=== PATIENT | male | born 1970 | race Caucasian/White ===

== ENCOUNTER → 2018-06-29 | Outpatient (CLI) | payer OTHER ==
--- NOTE | 2018-06-29 12:49 | CONS ---
CONSULTATION DATE OF SERVICE: 06/29/2018 A 47-year-old gentleman who has been evaluated in the [facility] for his sleep problems. Patient has difficulties to initiate sleep. Also wakes up from sleep. Feel tiredness and sleepiness during the day. HISTORY OF PRESENT ILLNESS/SLEEP-WAKE EVALUATION: Patient usually fell asleep late around 3 am. Sometimes this is the time when goes to bed, but sometimes he goes to bed early and cannot fall asleep until that time. Also, he may go to bed at 3 am and fall asleep around 5 am. Usually he sleeps from around 3 am until 9 a.m. and then he is staying in bed until 10 am and then he gets up. He does have TV set in bedroom, usually sleeps on the back position. According to his , he snores and sometimes has episodes of very quite sleep, possibly changes of the breathing during the sleep. In the morning, patient wakes up tired, has difficulties to pay attention, has problems with memory, concentration, irritability and anxiety. [place] Sleepiness Scale is 5. Patient usually does not take any naps. He drinks a lot of caffeinated beverages during the day. No history of hypnagogic hallucinations or sleep paralysis. When he sleeps, he wakes up unable to move. PAST MEDICAL HISTORY: 1. Positive for coronary artery disease with status post 2 heart attacks in 2006 and 2011, hypertension, hyperlipidemia. Recently patient started to have episodes of losing consciousness with a fall, under evaluation for possible cardiac arrhythmia. EEG evaluation for surgeries was negative. 2. History of anxiety. PAST SURGICAL HISTORY: Status post stent insertion to coronary artery in 2006, neck fusion in 2007, with blood clot. SOCIAL HISTORY: Positive for smoking for about 30 years for about 4 years, one pack a day, now occasionally. Alcohol consumption occasional. FAMILY HISTORY: Hypertension, heart problems, hyperlipidemia, arthritis, asthma, snoring, cancer, insomnia, restless legs. REVIEW OF SYSTEMS: Difficulties to initiate sleep, awakenings from sleep, tiredness and sleepiness during the day, episodes of passing out. PHYSICAL EXAM: gentleman without distress, BP 128/79, HR 84, RR 16, height 5 foot 8 inches, weight 162, body mass index 24.6, temperature 97.8, oxygen saturation at room air 98%. OROPHARYNX: Moderately low position of soft palate, big uvula, but deep throat, neck 14-1/2 inches in circumference, restriction of nasal breathing, 3 mm. Neck Supple, no JVD. Thyroid is not palpable. LUNGS Clear to percussion and to auscultation. Good air exchange. No wheezing or rhonchi. HEART S1, S2 regular. No murmurs, gallops, or rubs. ABDOMEN Soft and nontender. Bowel sounds are present. No organomegaly appreciated. EXTREMITIES No clubbing or cyanosis. 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 Cranial nerves 2 to 7 intact. There is no fasciculation or atrophy. noted. No focal deficits observed. IMPRESSION: 1. Snoring episodes of very quiet sleep during the night, possibly changes of breathing, moderately low position of soft palate. Restriction of nasal breathing, [QAMARKER], possible obstructive sleep apnea-hypopnea syndrome. 2. Insomnia, possibly related to anxiety. 3. Sleep delay syndrome. 4. History of coronary artery disease, status post two heart attacks, status post stent insertion. 5. Hypertension. 6. Episodes of passing out. Evaluation for surgeries by according to patient was negative under evaluation for cardiac arrhythmia. 7. History of asthma. 8. History of anxiety. 9. Hyperlipidemia. 10.Status post neck fusion in 2007. 11.History of smoking for 30 years, presently 7 cigarettes a day. PLAN: 1. Polysomnography for evaluation of patient's breathing during sleep. 2. CPAP/BiPAP titration if sleep study confirms obstructive sleep apnea-hypopnea syndrome. 3. Preferable position during sleep on the side. No driving if patient feels any sleepiness. 4. I will see patient for follow up visit to explain results of testing and following plan. 5. I discussed with the patient cognitive therapy for insomnia including stimulus control, paradoxical intention, no watching clock, worry time. 6. As much as possible bright light exposure in the morning. We discussed possibility to use light machine in the morning to help patient to move his sleep cycle earlier. Thank you very much for referring this patient for consultation. Sincerely, Chaz Guy MD, PhD, FAASM Diplomat of [employer] [employer] Correctional Treatment Specialist of [facility] [place] MMODL / IJN: [id number] /
== END | disposition home or self-care (01) ==
LOC: SLEEP 10:38
PROVIDERS: ATTEND Internal Medicine
DX: G47.00 Insomnia, unspecified (principal); G47.21 Circadian rhythm sleep disorder, delayed sleep phase type; I10 Essential (primary) hypertension; J45.909 Unspecified asthma, uncomplicated; F41.9 Anxiety disorder, unspecified; E78.5 Hyperlipidemia, unspecified; I25.2 Old myocardial infarction; F17.210 Nicotine dependence, cigarettes, uncomplicated; Z86.79 Personal history of other diseases of the circulatory system; Z98.1 Arthrodesis status; Z95.5 Presence of coronary angioplasty implant and graft
CPT/HCPCS: 99211

== ENCOUNTER → 2018-11-23 | Outpatient (CLI) | payer OTHER ==
--- NOTE | 2018-11-23 17:04 | PN ---
PROGRESS NOTE DATE OF SERVICE: 11/23/2018 This patient is a 48-year-old gentleman who has been followed in the sleep center for treatment of obstructive sleep apnea-hypopnea syndrome. Patient continues to have sleep problems related to possible obstructive sleep apnea. He snores and has witnessed episodes of possible stopped breathing during sleep. He wakes up from sleep. [place] Sleepiness Scale is significantly increased at 17 today. MEDICATIONS: 1. Lipitor. 2. Aspirin. 3. Toprol. 4. Plavix. 5. Cymbalta. 6. Xanax. 7. Vitamin D. 8. Albuterol inhaler. PHYSICAL EXAMINATION: GENERAL: A pleasant gentleman in no distress. VITAL SIGNS: BP 131/71, HR 87, RR 14, height 5 feet 8 inches, weight 165.4 pounds, temperature 97.7. HEENT: PERRLA, EOMI. Evaluation of oropharynx showed tongue protrudes midline. Low position of soft palate. NECK: Supple. No JVD. Thyroid is not palpable. Neck measures 15 inches in circumference. LUNGS: Clear to percussion and to auscultation. Good air exchange. No wheezing or rhonchi. HEART: S1, S2 regular. No murmurs, gallops or rubs. ABDOMEN: Soft and nontender. Bowel sounds are present. No organomegaly. EXTREMITIES: No clubbing or cyanosis. 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 Cranial nerves 2 to 7 intact. There is no fasciculation or atrophy. noted. No focal deficits observed. IMPRESSION: 1. Snoring, changes of breathing during sleep, low position of soft palate, significant excessive daytime sleepiness; obstructive sleep apnea-hypopnea syndrome. 2. History of sleep delay syndrome. 3. History of coronary artery disease, status post 2 heart attacks, status post stent insertion. 4. Hypertension. 5. History of episodes of passing out; 2 episodes since the patient was last seen in the sleep center. 6. History of asthma. 7. History of anxiety. 8. Hyperlipidemia. 9. Status post neck fusion in 2007. 10.History of smoking for about 30 years, at present about one third of a pack a day. PLAN: 1. Polysomnography for evaluation of patient's breathing during sleep. 2. CPAP titration if sleep study is positive for obstructive sleep apnea-hypopnea syndrome. 3. Sleep hygiene with regular time in bed for at least 7-1/2 hours. 4. No driving if feeling any sleepiness. Thank you very much for allowing me to participate in the management of your patient. Sincerely, Chaz Guy MD, PhD, FAASM Diplomat of [employer] Nutrition Aides Teacher of [facility] [place] MMLINDA / GIOVANNA: [id number] /
== END | disposition home or self-care (01) ==
LOC: SLEEP 15:33
PROVIDERS: ATTEND Internal Medicine
DX: G47.33 Obstructive sleep apnea (adult) (pediatric) (principal); I10 Essential (primary) hypertension; E78.5 Hyperlipidemia, unspecified; I25.2 Old myocardial infarction; F17.210 Nicotine dependence, cigarettes, uncomplicated; Z86.79 Personal history of other diseases of the circulatory system; Z87.09 Personal history of other diseases of the respiratory system; Z86.59 Personal history of other mental and behavioral disorders; Z95.5 Presence of coronary angioplasty implant and graft; Z98.1 Arthrodesis status; Z79.82 Long term (current) use of aspirin; Z79.02 Long term (current) use of antithrombotics/antiplatelets; Z79.899 Other long term (current) drug therapy

== ENCOUNTER 2020-06-04 11:42 | Observation (INO) | payer OTHER ==
[2020-06-04] MEDS ORDERED: ASPIRIN 81 MG PO STA (11:56)
[2020-06-04 12:04] LABS: Basophils # (A) 0.1 k/uL (0-0.2); Basophils % (A) 1 %; Eosinophils # (A) 0.5 k/uL (0-0.7); Eosinophils % (A) 4 %; HCT 44.8 % (39.0-53.0); HGB 14.9 gm/dL (13.0-17.5); Lymphocytes # (A) 1.7 k/uL (1.0-4.8); Lymphocytes % (A) 15 %; MCH 31.7 pg (25.0-35.0); MCHC 33.3 g/dL (31.0-37.0); MCV 95.1 fL (80.0-100.0); Mean Platelet Volume 7.8; Monocytes # (A) 0.6 k/uL (0-1.0); Monocytes % (A) 6 %; Neutrophils # (A) 8.2 k/uL (1.3-7.7); Neutrophils % (A) 74 %; Platelet Count 246 k/uL (150-450); RBC 4.71 m/uL (4.30-5.90); RDW 13.7 % (11.5-15.5); WBC 11.1 k/uL (3.8-10.6)
[2020-06-04 12:13] LABS: ALT 52 U/L (4-49); AST 47 U/L (17-59); African American GFR (CKD) >90 (>60 ml/min/1.73 sqM); Albumin 4.6 g/dL (3.5-5.0); Alkaline Phosphatase 136 U/L (38-126); Anion Gap 9 mmol/L; Blood Urea Nitrogen 10 mg/dL (9-20); Calcium 9.5 mg/dL (8.4-10.2); Carbon Dioxide 25 mmol/L (22-30); Chloride 105 mmol/L (98-107); Glucose 111 mg/dL (74-99); Lipase 109 U/L (23-300); Non-African American GFR(CKD) >90 (>60 ml/min/1.73 sqM); Potassium 4.7 mmol/L (3.5-5.1); Sodium 139 mmol/L (137-145); Total Bilirubin 0.4 mg/dL (0.2-1.3); Total Protein 7.5 g/dL (6.3-8.2)
[2020-06-04 12:19] LABS: INR 0.9 (<1.2); Prothrombin Time 9.6 sec (9.0-12.0)
--- NOTE | 2020-06-04 12:26 | XR ---
EXAMINATION TYPE: XR chest 2V DATE OF EXAM: 06/04/2020 COMPARISON: 07/29/2012 HISTORY: 49-year-old male with chest pain TECHNIQUE: PA and lateral views FINDINGS: The cardiomediastinal silhouette, aorta, and pulmonary vasculature are within normal limits. Loop rec order device is visualized. Mild interstitial prominence. No consolidation or pleural effusion. ACDF hardware. IMPRESSION: Interstitial prominence could represent bronchitis or asthma. Follow-up if concern for early atypical pneumonia. No focal infiltrate seen.
[2020-06-04 12:34] LABS: D-Dimer <0.17 mg/L FEU (<0.60)
[2020-06-04] MEDS ORDERED: NITROGLYCERIN SL TABS 0.4 MG TAB SUBLINGUAL PRN (12:48)
[2020-06-04] MEDS ORDERED: HEPARIN SODIUM,PORCINE 5,000 UNIT/ML 1 ML VIAL IV PRN (12:48)
[2020-06-04] MEDS ORDERED: HEPARIN SODIUM,PORCINE 5,000 UNIT/ML 1 ML VIAL IV ONE (12:48)
--- NOTE | 2020-06-04 12:48 | ED ---
Chest Pain HPI - General Chief Complaint: Chest Pain Stated Complaint: chest pain Time Seen by Provider: 06/04/20 11:48 Source: patient, RN notes reviewed Mode of arrival: wheelchair Limitations: no limitations - History of Present Illness Initial Comments: 49-year-old male presents emergency Department chief complaint of chest pain. Patient states symptoms started a couple days ago patient states symptoms are worsen. He's had no relief with nitro at home. Patient does not take any aspirin today. Patient had [place] in 2006 and was stented at that time by Dr. Lyn Patient denies any current shortness of breath. No leg pain. He has intermittent swelling. Patient takes multiple medications for cardiac disease - Related Data Allergies Allergy/AdvReac Type Severity Reaction Status Date / Time simvastatin [From Zocor] Allergy Unknown Verified 06/04/20 11:52 Review of Systems ROS Statement: Those systems with pertinent positive or pertinent negative responses have been documented in the HPI. ROS Other: All systems not noted in ROS Statement are negative. Past Medical History Past Medical History: Coronary Artery Disease (CAD), Deep Vein Thrombosis (DVT), Hyperlipidemia, Hypertension, Myocardial Infarction ([place]) Past Surgical History: Heart Catheterization With Stent Additional Past Surgical History / Comment(s): cervical fusion, loop recorder Past Psychological History: No Psychological Hx Reported Smoking Status: Former smoker Past Alcohol Use History: Occasional Past Drug Use History: None Reported General Exam Limitations: no limitations General appearance: alert, in no apparent distress Head exam: Present: atraumatic, normocephalic, normal inspection Eye exam: Present: normal appearance, PERRL, EOMI. Absent: scleral icterus, conjunctival injection, periorbital swelling ENT exam: Present: normal exam, normal oropharynx, mucous membranes moist Neck exam: Present: normal inspection. Absent: tenderness, meningismus, lymphadenopathy Respiratory exam: Present: normal lung sounds bilaterally. Absent: respiratory distress, wheezes, rales, rhonchi, stridor Cardiovascular Exam: Present: regular rate, normal rhythm, normal heart sounds. Absent: systolic murmur, diastolic murmur, rubs, gallop, clicks GI/Abdominal exam: Present: soft, normal bowel sounds. Absent: distended, tenderness, guarding, rebound, rigid Extremities exam: Present: normal capillary refill. Absent: pedal edema, calf tenderness Course Vital Signs 06/04/20 11:46 Temperature 98.2 F Pulse Rate 98 Respiratory 18 Rate Blood Pressure 157/91 O2 Sat by Pulse 99 Oximetry Chest Pain MDM - MDM Patient was reviewed with no significant abnormalities. Patient does have known cardiac disease with prior stents. Patient will be admitted for cardiac rule out and cardiology evaluation Disposition Clinical Impression: Chest pain Disposition: ADMITTED IP TO THIS HOSP Condition: Fair Referrals: Donell Gunter MD [Primary Care Provider] - 1-2 days
[2020-06-04] MEDS ORDERED: HEPARIN SOD,PORK IN 0.45% NACL 25,000 UNIT in 0.45% NACL 1 250ML.BAG IV SCH (13:00)
--- NOTE | 2020-06-04 14:59 | P.CRDCN ---
History of Present Illness Consult date: 06/04/20 History of present illness: CHIEF COMPLAINT: Chest pain HISTORY OF PRESENT ILLNESS: This is a 49-year-old male with a past medical history significant for coronary artery disease with previous PCI in 2007, syncope with loop recorder insertion in 2018, hypertension, hyperlipidemia, COPD, DVT, and former nicotine dependence. Patient used to follow with Dr. Meek. We have been asked to see the patient in consultation for chest pain. Patient examined this afternoon at the bedside. Patient states he began having chest pain last . He describes it as a nagging ache in the left upper part of his chest. He states the pain has continued since that time but has lessened in severity. He reports being short of breath and diaphoretic. He denies any cough or fever. Patient states the pain is not worse with movement or deep inspiration. Chest wall is nontender with palpation. Patient believes he has had a stress test or a cardiac catheterization within the last couple years with Dr. Meek. Patient also reports his blood pressure has been running high at home with a systolic in the 150s which is unusual for him. DIAGNOSTICS: EKG reveals sinus mechanism. Heart rate 96. No evidence of acute ischemia Chest xray interstitial prominence could represent bronchitis or asthma. Foll ow-up if concern for early atypical pneumonia. No focal infiltrate seen. Laboratory data: WBC 11.1. Hemoglobin 14.9. Platelet count 246. D-dimer 0.17. Sodium 139. Potassium 4.7. BUN 10. Creatinine 0.86. Magnesium 2.0. Troponin negative 1. BNP 44. Current home cardiac medications include measuring 10 mg 3 times a day, metoprolol 25 mg twice a day, lisinopril 2.5 mg daily, Imdur 30 mg daily, Plavix 75 mg daily, Lipitor 40 mg daily REVIEW OF SYSTEMS: At the time of my exam: CONSTITUTIONAL: Denies fever or chills. HEENT: Denies blurred vision, vision changes, or eye pain. Denies hemoptysis CARDIOVASCULAR: Denies chest pain, orthopnea, PND or palpitations RESPIRATORY: No shortness of breath. GASTROINTESTINAL: Denies abdominal pain. Denies nausea or vomiting. HEMATOLOGIC: Denies bleeding disorders. GENITOURINARY: Denies any blood in urine. SKIN: Denies pruitis. Denies rash. PHYSICAL EXAM: VITAL SIGNS: Reviewed. GENERAL: Well-developed in no acute distress. HEENT: Head is normocephalic. Pupils are equal, round. Sclerae anicteric. Mucous membranes of the mouth are moist. Neck supple. No JVD or thyromegaly LUNGS: Respirations even and unlabored. Lungs essentially clear to auscultation bilaterally. HEART: Regular rate and rhythm. S1 and S2 heard. ABDOMEN: Soft. Nondistended. Nontender. EXTREMITIES: Normal range of motion. No clubbing or cyanosis. Peripheral pulses intact. No lower extremity edema NEUROLOGIC: Awake and alert. Oriented x 3. ASSESSMENT: Chest pain Leukocytosis Coronary artery disease with previous PCI in 2006 History of syncope, status post loop recorder insertion Hypertension Hyperlipidemia COPD History of DVT Former nicotine dependence PLAN: Continue IV heparin Decrease aspirin to 81mg Trend troponin levels Resume home cardiac medications Increase lisinopril to 10 mg daily Obtain 2-D echo to assess cardiac structure and function Obtain records from Dr. Santana office Nothing by mouth after midnight Possible stress test tomorrow Nurse practitioner note has been reviewed by physician. Signing provider agrees with the documented findings, assessment, and plan of care. Past Medical History Past Medical History: Asthma, Coronary Artery Disease (CAD), Chest Pain / Angina, COPD, Deep Vein Thrombosis (DVT), Hyperlipidemia, Hypertension, Myocardial Infarction ([place]), Sleep Apnea/CPAP/BIPAP, Syncope, Vascular Disorder Additional Past Medical History / Comment(s): 2006 [place], 2012 [place], intermittent lower leg edema, DVT R leg, MARY KATE without device, insomia. Last Myocardial Infarction Date:: 2012 History of Any Multi-Drug Resistant Organisms: None Reported Past Surgical History: Heart Catheterization With Stent Additional Past Surgical History / Comment(s): PCI with stents, loop recorder (d/t syncope), R common femoral endartectomy/angioplasty, cervical fusion with plate, Past Anesthesia/Blood Transfusion Reactions: No Reported Reaction Date of Last Stent Placement:: 2012 Type of Cardiac Device: Loop Device Placement Date:: unknown Past Psychological History: Anxiety, Depression Additional Psychological History / Comment(s): Pt resides with his spouse. He does not drive. Spouse drives. Smoking Status: Former smoker Past Alcohol Use History: Occasional Additional Past Alcohol Use History / Comment(s): Pt started smoking as a teen and quit in 2019. Past Drug Use History: None Reported - Past Family History Father Family Medical History: Coronary Artery Disease (CAD), Myocardial Infarction ([place]) Additional Family Medical History / Comment(s): Father while on heart transplant list. He had several MIs with first one at age 41 yrs. He had CABGs Mother Family Medical History: Cancer Additional Family Medical History / Comment(s): Mother of lung cancer. She was a smoker. Medications and Allergies Home Medications Medication Instructions Recorded Confirmed Type ALPRAZolam [Xanax] 0.5 mg PO BID PRN 06/04/20 06/04/20 History Albuterol Sulfate [Proair Hfa] 2 puff INHALATION RT-Q6H PRN 06/04/20 06/04/20 History Atorvastatin Calcium [Lipitor] 40 mg HS 06/04/20 06/04/20 History Cetirizine HCl 10 mg PO HS 06/04/20 06/04/20 History Clopidogrel [Plavix] 75 mg PO HS 06/04/20 06/04/20 History Cyclobenzaprine HCl 10 mg PO TID PRN 06/04/20 06/04/20 History DULoxetine HCL [Cymbalta] 30 mg PO HS 06/04/20 06/04/20 History Ergocalciferol [Vitamin D2 (1250 1,250 mcg PO FR 06/04/20 06/04/20 History Mcg = [id number] Iu)] Ezetimibe [Zetia] 10 mg PO HS 06/04/20 06/04/20 History Glycopyrrolate/Formoterol Fum 2 puff INHALATION RT-BID 06/04/20 06/04/20 History [Bevespi Aerosphere Inhaler] Isosorbide Mononitrate ER [Imdur] 30 mg PO HS 06/04/20 06/04/20 History Metoprolol Succinate [Toprol XL] 25 mg PO BID 06/04/20 06/04/20 History Midodrine HCl [ProAmatine] 10 mg PO TID 06/04/20 06/04/20 History Omeprazole Magnesium 20 mg PO HS 06/04/20 06/04/20 History Zolpidem [Ambien] 5 mg PO HS PRN 06/04/20 06/04/20 History lisinopriL [Zestril] 2.5 mg PO DAILY 06/04/20 06/04/20 History Allergies Allergy/AdvReac Type Severity Reaction Status Date / Time simvastatin [From Zocor] Allergy Unknown Verified 06/04/20 13:06 Physical Exam Vitals: Vital Signs Temp Pulse Resp BP Pulse Ox 06/04/20 14:00 98.0 F 88 18 140/86 99 06/04/20 11:46 98.2 F 98 18 157/91 99 Intake and Output 06/03/20 06/04/20 06/04/20 22:59 06:59 14:59 Other: Weight 83.461 kg Results 06/04/20 11:58 06/04/20 11:58 Cardiac Enzymes 06/04/20 06/04/20 Range/Units 11:58 11:58 AST 47 (17-59) U/L Troponin I <0.012 (0.000-0.034) ng/mL Coagulation 06/04/20 Range/Units 11:58 PT 9.6 (9.0-12.0) sec APTT 24.0 (22.0-30.0) sec CBC 06/04/20 Range/Units 11:58 WBC 11.1 H (3.8-10.6) k/uL RBC 4.71 (4.30-5.90) m/uL Hgb 14.9 (13.0-17.5) gm/dL Hct 44.8 (39.0-53.0) % Plt Count 246 (150-450) k/uL Comprehensive Metabolic Panel 06/04/20 Range/Units 11:58 Sodium 139 (137-145) mmol/L Potassium 4.7 (3.5-5.1) mmol/L Chloride 105 (98-107) mmol/L Carbon Dioxide 25 (22-30) mmol/L BUN 10 (9-20) mg/dL Creatinine 0.86 (0.66-1.25) mg/dL Glucose 111 H (74-99) mg/dL Calcium 9.5 (8.4-10.2) mg/dL AST 47 (17-59) U/L ALT 52 H (4-49) U/L Alkaline Phosphatase 136 H (38-126) U/L Total Protein 7.5 (6.3-8.2) g/dL Albumin 4.6 (3.5-5.0) g/dL Current Medications Generic Name Dose Route Start Last Admin Trade Name Freq PRN Reason Stop Dose Admin Aspirin 325 mg 06/05/20 09:00 Aspirin 325 Mg Tab PO DAILY [facility] Heparin Sodium (Porcine) 0 unit 06/04/20 12:48 Heparin Sodium,Porcine 5,000 Unit/Ml 1 Ml Vial IV Q6HR PRN Low PTT Protocol Heparin Sodium/Sodium Chloride 250 mls @ 10.015 mls/hr 06/04/20 13:00 06/04/20 13:26 25,000 unit/ Sodium Chloride IV 12 units/kg/hr .Q24H TRELL 10.015 mls/hr Administration Protocol 12 UNITS/KG/HR Nitroglycerin 0.4 mg 06/04/20 12:48 Nitroglycerin Sl Tabs 0.4 Mg Tab SUBLINGUAL Q5M PRN Chest Pain Intake and Output 06/03/20 06/04/20 06/04/20 22:59 06:59 14:59 Other: Weight 83.461 kg Patient Weight 06/05/20 06:59 Weight 83.461 kg 06/04/20 11:58 06/04/20 11:58
[2020-06-04] MEDS ORDERED: ZOLPIDEM 5 MG TAB PO PRN (17:57)
[2020-06-04] MEDS ORDERED: ALPRAZolam 0.5 MG TAB PO PRN (17:57)
[2020-06-04] MEDS ORDERED: ALBUTEROL NEBULIZED 2.5 MG/3 ML INHALATION PRN (17:57)
[2020-06-04] MEDS ORDERED: CYCLOBENZAPRINE 10 MG TAB PO PRN (17:57)
[2020-06-04] MEDS ORDERED: MIDODRINE 5 MG TAB PO SCH (18:00)
[2020-06-04] MEDS: IPRATROPIUM 0.5 MG/2.5 ML NEBU INHALATION SCH (19:49)
[2020-06-04] MEDS: FORMOTEROL FUMARATE 20 MCG/2 ML NEBU INHALATION SCH (19:49)
--- NOTE | 2020-06-04 19:56 | P.HPIM ---
History of Present Illness H&P Date: 06/04/20 Chief Complaint: Not feeling well History of presenting complaint: This is a pleasant 49-year-old patient who follows with Dr. Gunter. Chronic stable medical conditions include COPD, DVT, hypertension, hyperlipidemia, obstructive sleep apnea, DVT of the right leg, does not use a CPAP machine, insomnia,. Patient's last stent was about 2006. Has not really followed up since then. Last weekend has been feeling just unwell. That is about 3 days ago. Just inferior right. Blood pressure is running high. Motor to be a slightly short of breath dizzy. [place] constant aching in the chest. Also tight the back. Can do for pain also. No wheezing. No fever no chills. No edema. Admitted with a diagnosis of unstable angina. Review of systems: GEN.: Tired EYES: None HEENT: None NECK: None RESPIRATORY: As above CARDIOVASCULAR: As above GASTROINTESTINAL: None GENITOURINARY: None MUSCULOSKELETAL: None LYMPHATICS: None HEMATOLOGICAL: None PSYCHIATRY: None NEUROLOGICAL: None Past medical history to include: Coronary artery with stent, COPD, DVT, hypertension, hyperlipidemia, obstructive sleep apnea does not use a device, insomnia. According, peripheral arterial disease with peripheral intervention anxiety depression Social history: Consult: Occasionally. Smoked a pack and a half a day for close to 30 years. Stopped last year. 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 Physical examination: VITAL SIGNS: 98.2, 98, 18, 157.91, 99% room air GENERAL: 28.0, sitting up in bed, not in distress. EYES: Pupils equal. Conjunctiva normal. HEENT: External appearance of nose and ears normal, oral cavity grossly normal. NECK: JVD not raised; masses not palpable. HEART: First and second heart sounds are normal; no edema. LUNGS: Respiratory rate normal; slightly decreased breath sounds. ABDOMEN: Soft, nontender, liver spleen not palpable, no masses palpable. PSYCH: Alert and oriented x3; mood and affect normal. NEUROLOGICAL: Cranial nerves grossly intact; no facial asymmetry, power and sensation grossly intact. LYMPHATICS: No lymph nodes palpable in the axilla and neck INVESTIGATIONS, reviewed in the clinical context: White count 9.1 hemoglobin 14.9 platelets 246 potassium 4.7 creatinine 0.86 Troponin I 3 negative EKG tracing personally reviewed by me-normal sinus rhythm Q waves in inferior leads Chest x-ray film personally reviewed by me-shows some interstitial prominence. Assessment: -Possible unstable angina in a patient with known coronary artery disease with a stent about 13 years ago. Patient has smoked up to about a year ago. -Essential hypertension -Coronary artery disease with stent -COPD in a previous smoker -Hypertension -Hyperlipidemia -Obstructive sleep apnea does not use a device -Peripheral artery disease with previously right common femoral and a right colectomy with angioplasty -Chronic insomnia Plan: Patient started IV heparin. Home medications resumed. Aspirin. Patient will benefit at least from a nuclear stress test and if not a cardiac catheterization. Care was discussed with the patient questions answered. Cardiology consulted. Past Medical History Past Medical History: Asthma, Coronary Artery Disease (CAD), Chest Pain / Angina, COPD, Deep Vein Thrombosis (DVT), Hyperlipidemia, Hypertension, Myocardial Infarction ([place]), Sleep Apnea/CPAP/BIPAP, Syncope, Vascular Disorder Additional Past Medical History / Comment(s): 2006 [place], [place], intermittent lower leg edema, DVT R leg, MARY KATE without device, insomia. Last Myocardial Infarction Date:: 2012 History of Any Multi-Drug Resistant Organisms: None Reported Past Surgical History: Heart Catheterization With Stent Additional Past Surgical History / Comment(s): PCI with stents, loop recorder (d/t syncope), R common femoral endartectomy/angioplasty, cervical fusion with plate, Past Anesthesia/Blood Transfusion Reactions: No Reported Reaction Date of Last Stent Placement:: 2012 Type of Cardiac Device: Loop Device Placement Date:: unknown Past Psychological History: Anxiety, Depression Additional Psychological History / Comment(s): Pt resides with his spouse. He does not drive. Spouse drives. Smoking Status: Former smoker Past Alcohol Use History: Occasional Additional Past Alcohol Use History / Comment(s): Pt started smoking as a teen and quit in 2019. Past Drug Use History: None Reported - Past Family History Father Family Medical History: Coronary Artery Disease (CAD), Myocardial Infarction ([place]) Additional Family Medical History / Comment(s): Father while on heart transplant list. He had several MIs with first one at age 41 yrs. He had CABGs Mother Family Medical History: Cancer Additional Family Medical History / Comment(s): Mother of lung cancer. She was a smoker. Medications and Allergies Home Medications Medication Instructions Recorded Confirmed Type ALPRAZolam [Xanax] 0.5 mg PO BID PRN 06/04/20 06/04/20 History Albuterol Sulfate [Proair Hfa] 2 puff INHALATION RT-Q6H PRN 06/04/20 06/04/20 History Atorvastatin Calcium [Lipitor] 40 mg HS 06/04/20 06/04/20 History Cetirizine HCl 10 mg PO HS 06/04/20 06/04/20 History Clopidogrel [Plavix] 75 mg PO HS 06/04/20 06/04/20 History Cyclobenzaprine HCl 10 mg PO TID PRN 06/04/20 06/04/20 History DULoxetine HCL [Cymbalta] 30 mg PO HS 06/04/20 06/04/20 History Ergocalciferol [Vitamin D2 (1250 1,250 mcg PO FR 06/04/20 06/04/20 History Mcg = 57339 Iu)] Ezetimibe [Zetia] 10 mg PO HS 06/04/20 06/04/20 History Glycopyrrolate/Formoterol Fum 2 puff INHALATION RT-BID 06/04/20 06/04/20 History [Bevespi Aerosphere Inhaler] Isosorbide Mononitrate ER [Imdur] 30 mg PO HS 06/04/20 06/04/20 History Metoprolol Succinate [Toprol XL] 25 mg PO BID 06/04/20 06/04/20 History Omeprazole Magnesium 20 mg PO HS 06/04/20 06/04/20 History Zolpidem [Ambien] 5 mg PO HS PRN 06/04/20 06/04/20 History lisinopriL [Zestril] 2.5 mg PO DAILY 06/04/20 06/04/20 History Allergies Allergy/AdvReac Type Severity Reaction Status Date / Time simvastatin [From Zocor] Allergy Unknown Verified 06/04/20 13:06 Physical Exam Vitals: Vital Signs Temp Pulse Pulse Resp BP BP Pulse Ox 06/04/20 14:58 98.1 F 85 85 H 126/79 06/04/20 14:00 98.0 F 88 18 140/86 99 06/04/20 11:46 98.2 F 98 18 157/91 99 Intake and Output 06/04/20 06/04/20 06/04/20 06:59 14:59 22:59 Intake Total 520 Balance 520 Intake: Intake, IV Titration 40 Amount Heparin Sod,Pork in 0.45% 40 NaCl 25,000 unit In 0.45 % NaCl 1 250ml.bag @ 12 UNITS/KG/HR 10.015 mls/hr IV .Q24H TRELL Rx#: [id number] Oral 480 Other: # Voids 1 Weight 83.461 kg Results CBC & Chem 7: 06/04/20 11:58 06/04/20 11:58 Labs: Abnormal Lab Results - Last 24 Hours (Table) 06/04/20 06/04/20 06/04/20 Range/Units 11:58 11:58 18:15 WBC 11.1 H (3.8-10.6) k/uL Neutrophils # 8.2 H (1.3-7.7) k/uL APTT 31.5 H (22.0-30.0) sec Glucose 111 H (74-99) mg/dL ALT 52 H (4-49) U/L Alkaline Phosphatase 136 H (38-126) U/L Thrombosis Risk Factor Assmnt - Choose All That Apply Any of the Below Risk Factors Present?: Yes Each Factor Represents 1 point: Age 41-60 years, Obesity (BMI >25) Other Risk Factors: Yes Each Risk Factor Represents 3 Points: History of DVT/PE Thrombosis Risk Factor Assessment Total Risk Factor Score: 5 Thrombosis Risk Factor Assessment Level: High Risk
[2020-06-04] MEDS ORDERED: PANTOPRAZOLE 40 MG TABLET PO SCH (21:00)
[2020-06-04] MEDS ORDERED: EZETIMIBE 10 MG TAB PO SCH (21:00)
[2020-06-04] MEDS ORDERED: DULoxetine HCL 30 MG CAPSULE.DR PO SCH (21:00)
[2020-06-04] MEDS ORDERED: ATORVASTATIN 40 MG TAB PO SCH (21:00)
[2020-06-04] MEDS ORDERED: ISOSORBIDE MONONITRATE ER 30 MG TAB.ER.24H PO SCH (21:00)
[2020-06-04] MEDS ORDERED: CLOPIDOGREL 75 MG TAB PO SCH (21:00)
[2020-06-04] MEDS: METOPROLOL SUCCINATE (ER) 25 MG TAB.ER.24H PO SCH (22:49)
[2020-06-05 02:20] LABS: Mean Platelet Volume 7.9; Platelet Count 237 k/uL (150-450)
[2020-06-05] MEDS: FORMOTEROL FUMARATE 20 MCG/2 ML NEBU INHALATION SCH (07:17)
[2020-06-05] MEDS: IPRATROPIUM 0.5 MG/2.5 ML NEBU INHALATION SCH ×3 (07:17→15:20)
[2020-06-05] MEDS ORDERED: REGADENOSON 0.4 MG/5 ML SYRINGE IV PRN (08:23)
[2020-06-05] MEDS ORDERED: AMINOPHYLLINE 500 MG/20 ML VIAL IV PRN (08:23)
[2020-06-05] MEDS ORDERED: CAFFEINE CITRATE 60 MG/3 ML VIAL IV PRN (08:23)
[2020-06-05] MEDS: METOPROLOL SUCCINATE (ER) 25 MG TAB.ER.24H PO SCH (08:47)
[2020-06-05] MEDS ORDERED: lisinopriL 10 MG TAB PO SCH (09:00)
[2020-06-05] MEDS ORDERED: ASPIRIN 81 MG PO SCH (09:00)
[2020-06-05] MEDS ORDERED: ASPIRIN 325 MG TAB PO SCH (09:00)
[2020-06-05 10:09] LABS: Chol/HDL Ratio 4.32
--- NOTE | 2020-06-05 11:00 | P.PN ---
Subjective Progress Note Date: 06/05/20 CHIEF COMPLAINT: Chest pain HISTORY OF PRESENT ILLNESS: 06/04/2020 This is a 49-year-old male with a past medical history significant for coronary artery disease with previous PCI in 2006, syncope with loop recorder insertion in 2018, hypertension, hyperlipidemia, COPD, DVT, and former nicotine dependence. Patient used to follow with Dr. Meek, and prior to that he saw Dr. Lyn. We have been asked to see the patient in consultation for chest pain. Patient examined this afternoon at the bedside. Patient states he began having chest pain last . He describes it as a nagging ache in the left upper part of his chest. He states the pain has continued since that time but has lessened in severity. He reports being short of breath and diaphoretic. He denies any cough or fever. Patient states the pain is not worse with movement or deep inspiration. Chest wall is nontender with palpation. Patient believes he has had a stress test or a cardiac catheterization within the last couple years with Dr. Meek. Patient also reports his blood pressure has been running high at home with a systolic in the 150s which is unusual for him. 06/05/2020 Patient examined this morning at the bedside. He denies chest pain or pressure. Denies shortness of breath. Troponins negative 3. Vital signs are stable. PHYSICAL EXAM: VITAL SIGNS: Reviewed. GENERAL: Well-developed in no acute distress. HEENT: Head is normocephalic. Pupils are equal, round. Sclerae anicteric. Mucous membranes of the mouth are moist. Neck supple. No JVD or thyromegaly LUNGS: Respirations even and unlabored. Lungs essentially clear to auscultation bilaterally. HEART: Regular rate and rhythm. S1 and S2 heard. ABDOMEN: Soft. Nondistended. Nontender. EXTREMITIES: Normal range of motion. No clubbing or cyanosis. Peripheral pulses intact. No lower extremity edema NEUROLOGIC: Awake and alert. Oriented x 3. ASSESSMENT: Chest pain Leukocytosis Coronary artery disease with previous PCI in 2006 History of syncope, status post loop recorder insertion Hypertension Hyperlipidemia COPD History of DVT Former nicotine dependence PLAN: Discontinue IV heparin Continue additional cardiac medications 2-D echo ordered. Await results Patient to undergo Lexiscan stress test today. If stress test is negative and echocardiogram does not reveal any significant abnormalities, the patient may be discharged home today from a cardiac standpoint Nurse practitioner note has been reviewed by physician. Signing provider agrees with the documented findings, assessment, and plan of care. Objective - Vital Signs Vital signs: Vital Signs Temp 97.5 F L 06/05/20 07:44 Pulse 82 06/05/20 07:44 Resp 18 06/05/20 08:00 BP 134/70 06/05/20 07:44 Pulse Ox 96 06/05/20 07:44 Intake & Output 06/04/20 06/05/20 06/05/20 18:59 06:59 18:59 Intake Total 520 296.6 Balance 520 296.6 Weight 83.461 kg 83.46 kg Intake: Intake, IV Titration 40 66.6 Amount Heparin Sod,Pork in 0.45% 40 66.6 NaCl 25,000 unit In 0.45 % NaCl 1 250ml.bag @ 12 UNITS/KG/HR 10.015 mls/hr IV .Q24H TRELL Rx#: [id number] Oral 480 230 Other: Voiding Method Toilet Toilet # Voids 1 0 - Labs CBC & Chem 7: 06/05/20 02:01 06/04/20 11:58 Labs: Abnormal Lab Results - Last 24 Hours (Table) 06/04/20 06/04/20 06/04/20 Range/Units 11:58 11:58 18:15 WBC 11.1 H (3.8-10.6) k/uL Neutrophils # 8.2 H (1.3-7.7) k/uL APTT 31.5 H (22.0-30.0) sec Glucose 111 H (74-99) mg/dL ALT 52 H (4-49) U/L Alkaline Phosphatase 136 H (38-126) U/L Triglycerides (0.0-149.0) mg/dL HDL Cholesterol (40.0-60.0) mg/dL 06/05/20 06/05/20 Range/Units 02:01 02:01 WBC (3.8-10.6) k/uL Neutrophils # (1.3-7.7) k/uL APTT 53.9 H (22.0-30.0) sec Glucose (74-99) mg/dL ALT (4-49) U/L Alkaline Phosphatase (38-126) U/L Triglycerides 410.0 H (0.0-149.0) mg/dL HDL Cholesterol 38.0 L (40.0-60.0) mg/dL
--- NOTE | 2020-06-05 11:41 | ECHOF ---
Referral Reason:chest pain MEASUREMENTS -------- HEIGHT: 172.7 cm WEIGHT: 83.5 kg BP: 137/83 RVIDd: 3.0 cm (< 3.3) IVSd: 1.2 cm (0.6 - 1.1) LVIDd: 4.9 cm (3.9 - 5.3) LVPWd: 1.2 cm (0.6 - 1.1) IVSs: 1.9 cm LVIDs: 3.3 cm LVPWs: 1.8 cm LA Diam: 3.6 cm (2.7 - 3.8) LAESV Index (A-L): 21.93 ml/m Ao Diam: 3.6 cm (2.0 - 3.7) AV Cusp: 2.4 cm (1.5 - 2.6) MV EXCURSION: 15.405 mm (> 18.000) MV EF SLOPE: 127 mm/s (70 - 150) EPSS: 1.3 cm MV E Pradeep: 0.86 m/s MV DecT: 168 ms MV A Pradeep: 0.65 m/s MV E/A Ratio: 1.31 FINDINGS -------- Sinus rhythm. This was a technically adequate study. The left ventricular size is normal. There is borderline concentric left ventricular hypertrophy. Overall left ventricular systolic function is mildly impaired with, an EF between 45 - 50 %. Basal inferior LV wall motion is hypokinetic. Basal inferoseptal LV wall motion is hypokinetic. The right ventricle is normal in size. Normal LA size by volume 22+/-6 ml/m2. The right atrial size is normal. Aneurysmal Interatrial septum. The aortic valve is trileaflet, and appears structurally normal. No aortic stenosis or regurgitation. The mitral valve is normal. Mild mitral regurgitation is present. The tricuspid valve appears structurally normal. Mild tricuspid regurgitation present. There is no pulmonic regurgitation present. The aortic root size is normal. There is no pericardial effusion. CONCLUSIONS -------- 1. There is borderline concentric left ventricular hypertrophy. 2. Overall left ventricular systolic function is mildly impaired with, an EF between 45 - 50 %. 3. Basal inferior LV wall motion is hypokinetic. 4. Basal inferoseptal LV wall motion is hypokinetic. 5. Aneurysmal Interatrial septum. 6. The aortic valve is trileaflet, and appears structurally normal. No aortic stenosis or regurgitati on. 7. Mild mitral regurgitation is present. 8. Mild tricuspid regurgitation present. 9. There is no pericardial effusion. APPLIANCE SERVICER: SAMIR Salinas
--- NOTE | 2020-06-05 13:10 | EST ---
EXERCISE STRESS AGE: 49 SEX: Male HT: 5'8"` WT: 183 lbs. PROTOCOL: Lexiscan STAGE: N/A DURATION OF EXERCISE: 5 minutes HEART RATE REST: 71 BLOOD PRESSURE REST: 143/89 MAXIMUM HEART RATE ACHIEVED: 106 MAXIMUM BLOOD PRESSURE: 156/86 85% MPHR: 146 100% MPHR: 172 METS: N/A INDICATIONS: chest pain CLINICAL INFORMATION: Baseline rhythm is sinus mechanism, rate of 71, normal axis and intervals, cannot exclude inferior wall myocardial infarction. Baseline blood pressure 143/89 mmHg. Patient received an injection of Lexiscan. Electrocardiograph monitoring revealed no evidence of diagnostic ischemic ST deviation. Cardiolite was injected per protocol. CONCLUSION: 1. Nondiagnostic electrocardiograph stress testing. 2. Nuclear images will be reported separately. MMODL / IJN: [id number] /
--- NOTE | 2020-06-05 14:19 | NM ---
EXAMINATION TYPE: NM stress lexiscan cardiolite DATE OF EXAM: 06/05/2020 COMPARISON: NONE HISTORY: Chest pain. History of hypertension and four-vessel CABG procedure. History of COPD and asth ma. History of tobacco use in the past. History of myocardial infarction. TECHNIQUE: After the intravenous administration of 10.0 mCi Tc 99m Sestamibi - Cardiolite resting SP ECT images acquired 45 minutes post injection. The patient received 0.4mg Lexiscan, 26.0 mCi Tc 99m Sestamibi - Stress images obtained [address] injection FINDINGS: Review of stress and rest SPECT images demonstrates no distinct perfusion abnormality. Increased end- diastolic volume. Ejection fraction 50%. Fairly satisfactory wall motion. IMPRESSION: No scintigraphic evidence for reversible ischemia. No scintigraphic evidence for reversible ischemia.
[2020-06-05 14:23] VITALS: BP 132/86; PULSE 81; RESP 16; TEMP 97.9
--- NOTE | 2020-06-09 21:18 | P.DS ---
Providers Date of admission: 06/04/20 12:48 Expected date of discharge: 06/05/20 Attending physician: Jon Mejia Consults: 06/04/20 12:48 Consult Physician Urgent Consulting Provider: Angelica Lyn Consult Reason/Comments: chest pain Do you want consulting provider notified?: Yes Primary care physician: [facility] Course: Chief Complaint: Not feeling well History of presenting complaint: This is a pleasant 49-year-old patient who follows with Dr. Gunter. Chronic stable medical conditions include COPD, DVT, hypertension, hyperlipidemia, obstructive sleep apnea, DVT of the right leg, does not use a CPAP machine, insomnia,. Patient's last stent was about 2006. Has not really followed up since then. Last weekend has been feeling just unwell. That is about 3 days ago. Just inferior right. Blood pressure is running high. slightly short of breath dizzy. [place] constant aching in the chest. Also tight in the back. . No wheezing. No fever no chills. No edema. Admitted with a diagnosis of unstable angina. Troponins were negative. Nuclear stress test was negative. Cleared by cardiology. Discussed with the patient. Follow-up with cardiology. Consultation: Dr. Kim from cardiology Past medical history to include: Coronary artery with stent, COPD, DVT, hypertension, hyperlipidemia, obstructive sleep apnea does not use a device, insomnia. According, peripheral arterial disease with peripheral intervention anxiety depression Social history: Consult: Occasionally. Smoked a pack and a half a day for close to 30 years. Stopped last year. 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 Physical examination: VITAL SIGNS: 97.5, 82, 18, 134 was 70, 96% room air GENERAL: 28.0, sitting up in bed, comfortable EYES: Pupils equal. Conjunctiva normal. HEENT: External appearance of nose and ears normal, oral cavity grossly normal. NECK: JVD not raised; masses not palpable. HEART: First and second heart sounds are normal; no edema. LUNGS: Respiratory rate normal; slightly decreased breath sounds. ABDOMEN: Soft, nontender, liver spleen not palpable, no masses palpable. PSYCH: Alert and oriented x3; mood and affect normal. INVESTIGATIONS, reviewed in the clinical context: 2-D echocardiogram-EF 45-50%. Some localized hypokinesis. No clear stress test-negative Total cholesterol for [address] and 38 White count 9.1 hemoglobin 14.9 platelets 246 potassium 4.7 creatinine 0.86 Troponin I 3 negative EKG tracing personally reviewed by me-normal sinus rhythm Q waves in inferior leads Chest x-ray film personally reviewed by me-shows some interstitial prominence. Assessment: -Anterior chest wall pain-negative for stress test. -Essential hypertension -Coronary artery disease with stent -COPD in a previous smoker -Hypertension -Hyperlipidemia -Obstructive sleep apnea does not use a device -Peripheral artery disease with previously right common femoral and a right colectomy with angioplasty -Chronic insomnia Disposition: Home Plan - Discharge Summary Discharge Rx Participant: No New Discharge Prescriptions: New Aspirin 81 mg PO DAILY chew Nitroglycerin Sl Tabs [Nitrostat] 0.4 mg SUBLINGUAL Q5M PRN #25 tab PRN Reason: Chest Pain lisinopriL [Zestril] 10 mg PO HS #30 tab Continue Zolpidem [Ambien] 5 mg PO HS PRN PRN Reason: Insomnia Ergocalciferol [Vitamin D2 (1250 Mcg = 08845 Iu)] 1,250 mcg PO FR Omeprazole Magnesium 20 mg PO HS Albuterol Sulfate [Proair Hfa] 2 puff INHALATION RT-Q6H PRN PRN Reason: Shortness Of Breath Metoprolol Succinate [Toprol XL] 25 mg PO BID Isosorbide Mononitrate ER [Imdur] 30 mg PO HS Ezetimibe [Zetia] 10 mg PO HS DULoxetine HCL [Cymbalta] 30 mg PO HS Cyclobenzaprine HCl 10 mg PO TID PRN PRN Reason: Muscle Spasm Clopidogrel [Plavix] 75 mg PO HS Atorvastatin Calcium [Lipitor] 40 mg HS ALPRAZolam [Xanax] 0.5 mg PO BID PRN PRN Reason: Anxiety Glycopyrrolate/Formoterol Fum [Bevespi Aerosphere Inhaler] 2 puff INHALATION RT-BID Discontinued lisinopriL [Zestril] 2.5 mg PO DAILY Cetirizine HCl 10 mg PO HS Discharge Medication List ALPRAZolam [Xanax] 0.5 mg PO BID PRN 06/04/20 [History] Albuterol Sulfate [Proair Hfa] 2 puff INHALATION RT-Q6H PRN 06/04/20 [History] Atorvastatin Calcium [Lipitor] 40 mg HS 06/04/20 [History] Clopidogrel [Plavix] 75 mg PO HS 06/04/20 [History] Cyclobenzaprine HCl 10 mg PO TID PRN 06/04/20 [History] DULoxetine HCL [Cymbalta] 30 mg PO HS 06/04/20 [History] Ergocalciferol [Vitamin D2 (1250 Mcg = 68488 Iu)] 1,250 mcg PO FR 06/04/20 [History] Ezetimibe [Zetia] 10 mg PO HS 06/04/20 [History] Glycopyrrolate/Formoterol Fum [Bevespi Aerosphere Inhaler] 2 puff INHALATION RT- BID 06/04/20 [History] Isosorbide Mononitrate ER [Imdur] 30 mg PO HS 06/04/20 [History] Metoprolol Succinate [Toprol XL] 25 mg PO BID 06/04/20 [History] Omeprazole Magnesium 20 mg PO HS 06/04/20 [History] Zolpidem [Ambien] 5 mg PO HS PRN 06/04/20 [History] Aspirin 81 mg PO DAILY chew 06/05/20 [Rx] Nitroglycerin Sl Tabs [Nitrostat] 0.4 mg SUBLINGUAL Q5M PRN #25 tab 06/05/20 [Rx] lisinopriL [Zestril] 10 mg PO HS #30 tab 06/05/20 [Rx] Follow up Appointment(s)/Referral(s): Angelica Lyn MD [STAFF PHYSICIAN] - 1 Week (Office will call with followup appointment time) Donell Gunter MD [Primary Care Provider] - 06/11/20 9:30 am ([facility] [employer]) Patient Instructions/Handouts: Chest Pain (DC), Heart Healthy Diet (DC)
== END 2020-06-05 16:26 ==
LOC: EC 11:42 → 6NMEDSUR 12:48
PROVIDERS: ADMIT Hospitalist; ATTEND Hospitalist
DX: R07.89 Other chest pain (principal); I10 Essential (primary) hypertension; D72.829 Elevated white blood cell count, unspecified; I25.10 Atherosclerotic heart disease of native coronary artery without angina pectoris; E78.5 Hyperlipidemia, unspecified; J44.9 Chronic obstructive pulmonary disease, unspecified; R61 Generalized hyperhidrosis; G47.33 Obstructive sleep apnea (adult) (pediatric); I73.9 Peripheral vascular disease, unspecified; R55 Syncope and collapse; R60.0 Localized edema; F32.9 Major depressive disorder, single episode, unspecified; F41.9 Anxiety disorder, unspecified; F51.04 Psychophysiologic insomnia; E66.9 Obesity, unspecified; Z68.28 Body mass index [BMI] 28.0-28.9, adult; Z79.02 Long term (current) use of antithrombotics/antiplatelets; Z79.899 Other long term (current) drug therapy; Z99.89 Dependence on other enabling machines and devices; Z88.8 Allergy status to other drugs, medicaments and biological substances; Z95.818 Presence of other cardiac implants and grafts; Z87.891 Personal history of nicotine dependence; Z95.5 Presence of coronary angioplasty implant and graft; Z86.718 Personal history of other venous thrombosis and embolism; I25.2 Old myocardial infarction; Z98.1 Arthrodesis status; Z82.49 Family history of ischemic heart disease and other diseases of the circulatory system; Z80.1 Family history of malignant neoplasm of trachea, bronchus and lung; Z81.2 Family history of tobacco abuse and dependence
CPT/HCPCS: 96376 ×2; 96366 ×2; 93005 ×2; 96365; 99285; 36415; 93017; 93306; 85379; 83880; 80061; 80053; 83690; 83735; 84484; 85025; 85049; 85610; 85730 ×2; 83721; 71046; 78452; G0378 ×2; A9500; J1644 ×2; J2785; 96375